=== PATIENT | male | born 1940 | race Caucasian/White ===

== ENCOUNTER 2016-09-12 10:56 | Emergency (ER) | payer OTHER, MEDICARE ==
[2016-09-12 11:06] VITALS: RESP 16
--- NOTE | 2016-09-12 12:10 | EDPHY ---
H & P Time Seen by Provider: 09/12/16 11:14 HPI/ROS: CHIEF COMPLAINT: Mechanical fall, facial abrasions HISTORY OF PRESENT ILLNESS: 76-year-old male presents after having a mechanical fall at home just prior to arrival. The patient slipped on his gravel driveway falling forward hitting his face. He did not lose consciousness. He denies a headache. Sustained facial abrasions. Denies neck or back pain. Denies chest pain or difficulty breathing. Denies presyncopal symptoms prior to his fall denies abdominal pain. Tetanus shot is current. REVIEW OF SYSTEMS: Constitutional: No fever, no chills. Eyes: No double or blurry vision. ENT: No sore throat. Respiratory: No cough, no shortness of breath. Cardiac: No chest pain. Gastrointestinal: No abdominal pain, vomiting or diarrhea. Genitourinary: No dysuria. Musculoskeletal: No neck or back pain. Skin: No rashes. Neurological: No headache. Past Medical/Surgical History: Hypertension, GERD Social History: and lives in [place] Smoking Status: Never smoked Physical Exam: General Appearance: Alert, no distress. Vital signs are stable. at bedside. Mentating normally and answering questions appropriately. Eyes: Pupils equal and round. Extraocular motions are all intact. ENT: Mouth: Mucous membranes moist. Respiratory: No wheezing, rhonchi, or rales, lungs are clear to auscultation. Cardiovascular: Regular rate and rhythm. Gastrointestinal: Abdomen is soft and nontender, no masses, no rebound or guarding, bowel sounds normal. Neurological: Alert and oriented x 3, cranial nerves II through XII grossly intact Skin: superficial abrasions to the anterior aspect of the nose as well as the right side of the face just below the right eye. There is debris noted. No suturable lacerations noted. There is a very superficial small less than 1 cm skin flap which was removed. Warm and dry, no rashes. Musculoskeletal: Nontender to palpate along the cervical, thoracic or lumbar spine. Neck is supple. Extremities: Full range of motion and no peripheral edema. Psychiatric: Patient is oriented X 3, there is no agitation. Constitutional: Initial Vital Signs Temperature (C) 36.4 C 09/12/16 11:03 Heart Rate 72 09/12/16 11:03 Respiratory Rate 16 09/12/16 11:03 Blood Pressure 137/97 H 09/12/16 11:03 O2 Sat (%) 97 09/12/16 11:03 O2 Delivery Mode Room Air Allergies/Adverse Reactions: No Known Allergies Allergy (Unverified 09/12/16 12:16) Home Medications: Medication Instructions Recorded Aspirin [Aspirin 81mg (*)] 81 mg PO DAILY 09/12/16 Cephalexin [Keflex (RX)] 500 mg PO BID #14 cap 09/12/16 Omeprazole [Prilosec 20 mg] 20 mg PO DAILY 09/12/16 Valsartan [Diovan (*)] 40 mg PO 09/12/16 Medical Decision Making - Diagnostics Imaging: CT imaging of the brain reveals no intracranial bleeding. There is a small nasal bone fracture noted. This is reported to me by Dr. Dante Sims. ED Course/Re-evaluation: 76-year-old male presents after mechanical fall at home on his gravel driveway. The wounds were cleansed. No suturable lacerations. CT imaging of the brain was normal. There is a small nasal bone fracture noted. He will be started on Keflex to prevent any kind of infection. He was given ENT referral. His felt comfortable taking him home. Given instructions to return if he develops headache, vomiting, altered mental status, or if he seems worse in any way. Differential Diagnosis: Head injury including but not limited to concussion, skull fracture, intraparenchymal contusion, subarachnoid, subdural and epidural hematoma. Departure - Departure Disposition: Home, Routine, Self-Care Clinical Impression: Nasal bone fracture Qualifiers: Encounter type: initial encounter Fracture type: open Qualified Code(s): S02.2XXB - Fracture of nasal bones, initial encounter for open fracture Facial abrasion Qualifiers: Encounter type: initial encounter Qualified Code(s): S00.81XA - Abrasion of other part of head, initial encounter Condition: Good Instructions: Nasal Fracture (ED), Acute Wound Care (ED), Abrasion (ED) Additional Instructions: Keflex as directed for one week to prevent infection. Referrals: Diana Loo MD [Medical Doctor] - As per Instructions (ENT at [facility]) Prescriptions: Cephalexin [Keflex (RX)] 500 mg PO BID #14 cap
[2016-09-12 13:02] VITALS: BP 130/78; PULSE 80; TEMP 98.4; O2SAT 94
== END 2016-09-12 13:00 | disposition home or self-care (01) ==
DX: S02.2XXA Fracture of nasal bones, initial encounter for closed fracture (principal); S00.81XA Abrasion of other part of head, initial encounter; I10 Essential (primary) hypertension; Z79.82 Long term (current) use of aspirin; W18.39XA Other fall on same level, initial encounter; Y92.009 Unspecified place in unspecified non-institutional (private) residence as the place of occurrence of the external cause

== ENCOUNTER → 2016-09-16 | Outpatient (CLI) | payer OTHER, MEDICARE | LOC: FIMAGING 14:08 | PROVIDERS: ATTEND Orthopaedic Surgery Sports Medicine | DX: M25.512 Pain in left shoulder (principal); M75.102 Unspecified rotator cuff tear or rupture of left shoulder, not specified as traumatic; M75.22 Bicipital tendinitis, left shoulder; M75.82 Other shoulder lesions, left shoulder; M13.812 Other specified arthritis, left shoulder; Z98.890 Other specified postprocedural states ==

== ENCOUNTER → 2017-07-03 | Outpatient (CLI) | payer OTHER, MEDICARE | LOC: BMCIMAGING 16:02 | PROVIDERS: ATTEND Podiatrist Foot & Ankle Surgery | DX: M19.071 Primary osteoarthritis, right ankle and foot (principal) ==